=== PATIENT | male | born 2005 | race Two or more races ===

== ENCOUNTER 2024-08-22 03:55 | Emergency (ER) | payer MEDICAID, OTHER ==
[~2024-08-22] VITALS: Ht 185.4 cm; Wt 94.8 kg
[2024-08-22 04:33] VITALS: BP 130/90; PULSE 94; RESP 18; TEMP 98.3; O2SAT 99
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
== END 2024-08-22 05:34 | disposition home or self-care (01) ==
LOC: ER 03:55
DX: R06.02 Shortness of breath (principal); X00.0XXA Exposure to flames in uncontrolled fire in building or structure, initial encounter; Y93.89 Activity, other specified; Y92.89 Other specified places as the place of occurrence of the external cause; Y99.8 Other external cause status
CPT/HCPCS: 71046